=== PATIENT | female | born 1995 | race Caucasian/White ===

== ENCOUNTER 2022-06-17 15:41 | Emergency (ER) | payer OTHER, SELFPAY ==
--- NOTE | ~2022-06-17 | US_ITS ---
Pelvic ultrasound. Clinical History: First trimester , vaginal bleeding, pelvic pain Technique: Realtime transabdominal and transvaginal scanning of the pelvis was performed. Color flow Doppler and Doppler spectral analysis were performed. Findings: The uterus is anteverted. The endometrial stripe has a thickness of 11 mm. No intrauterine gestational sac is identified. The right ovary measures 2.3 x 1.4 x 2.3 cm. No significant right ovarian or adnexal mass is seen. The left ovary measures 2.5 x 2.0 x 2.8 cm. No significant left ovarian or adnexal mass is seen. Rest of flow present in both ovaries on Doppler spectral analysis. There is no evidence of free fluid in the cul de sac. Impression: Positive test without intrauterine gestation. Differential diagnosis includes early normal , spontaneous , or nonvisualized ectopic . Correlate clinically. Continued follow up with serial beta hCG, and repeat ultrasound as warranted, is advised. Reviewed, dictated and finalized at [facility]. GER CANCER Impression: Positive test without intrauterine gestation. Differential diagnosis includes early normal , spontaneous , or nonvisualized ectopic . Correlate clinically. Continued follow up with serial beta hCG, and repeat ultrasound as warranted, is advised.
[2022-06-17 16:21] VITALS: BP 134/76; PULSE 109; RESP 14; TEMP 36.8; O2SAT 99
[2022-06-17 17:29] LABS: Basophils Absolute Auto 0.1 K/mm3 (0.0-0.1); Basophils Percent Auto 0.9 % (0.2-1.2); Eosinophils Absolute Auto 0.1 K/mm3 (0-0.3); Eosinophils Percent Auto 1.4 % (0-4.4); Hematocrit 43.3 % (37.0-47.0); Hemoglobin 14.8 g/dL (12.0-15.0); Immature Granulocyte Absolute 0.02 K/mm3 (0.00-0.031); Immature Granulocyte Percent A 0.3 % (0-0.5); Lymphocytes Absolute Auto 2.24 K/mm3 (0.9-3.2); Lymphocytes Percent Auto 32.1 % (18.3-44.2); Mean Corpuscular HGB Conc 34.2 g/dl (32-36); Mean Corpuscular Hemoglobin 31.4 pg (26-34); Mean Corpuscular Volume 91.7 fl (80-100); Mean Platelet Volume 10.4 fl (7.4-10.4); Monocytes Absolute Auto 0.5 K/mm3 (0.1-0.6); Monocytes Percent Auto 6.6 % (2.6-8.5); Neutrophils Absolute Auto 4.1 K/mm3 (1.3-6.7); Neutrophils Percent Auto 58.7 % (45.5-73.1); Platelet Count Result 267 k/mm3 (150-375); Red Blood Count 4.72 M/mm3 (4.2-5.4); Red Cell Distribution Width 12.3 % (11.5-14.5)
[2022-06-17 21:48] VITALS: BP 122/81; PULSE 90; RESP 16; O2SAT 100
--- NOTE | 2022-06-17 23:40 | ED.PREGNANCY ---
HPI - General Chief complaint: SKIVER UPPERS OR LININGS Stated complaint: wants to confirm with blood test Time Seen by Provider: 06/17/22 22:04 Source: patient Mode of arrival: ambulatory Limitations: no limitations History of Present Illness HPI Narrative: Patient is a 27 yo female who presents to the ED wanting blood test to confirm . Patient reports the first day of her last normal menstrual cycle was May 09. She had 2 positive tests 2 weeks ago. She is scheduled to see an OFFICE SERVICES REPRESENTATIVE with [facility] on July 05. Patient reports having intermittent lower abdominal cramping over the last couple of days, worse in left lower abdomen. She denies having any pain today. She did note some brown vaginal discharge today, which prompted her presentation. She would like a official blood test to confirm her . Denies N/V, fever, cough, cold sx's. Patient is G1, P0. She has never seen a OFFICE SERVICES REPRESENTATIVE before. Never had Pap smear before. Related Data Allergies Allergy/AdvReac Type Severity Reaction Status Date / Time No Known Allergies Allergy Verified 06/17/22 21:50 Review of Systems Review of Systems: CONSTITUTIONAL: Denies fever, chills, or sweats. CARDIOVASCULAR: Denies chest pain. RESPIRATORY: Denies cough or dyspnea. GASTROINTESTINAL: See HPI. GENITOURINARY: See HPI. All systems reviewed & are unremarkable except as noted in HPI and below PMFSH Past Medical History Medical History (Updated 06/18/22 @ 03:21 by Elena Velarde PA-C) No pertinent past medical history Surgical History Surgical History (Updated 06/18/22 @ 00:13 by Elena Velarde PA-C) No pertinent past surgical history Social History Social History (Updated 06/18/22 @ 00:13 by Elena Velarde PA-C) Smoking status: Never smoker Exam Narrative: GENERAL: Well appearing, thin, non-toxic, in no acute distress. HEAD: Normocephalic, atraumatic. NECK: Supple. No adenopathy, no masses. RESPIRATORY: Airway patent, respirations nonlabored. Clear to auscultation bilaterally, no rales, rhonchi, wheezing. CARDIOVASCULAR: Regular rate and rhythm without murmurs, rubs, or gallops. Radial pulses 2+ and equal bilaterally. ABDOMINAL: Soft, minimal lower abdominal tenderness, nondistended, no hepatosplenomegaly. Normoactive BS. PELVIC: Normal external genitalia. Mild amount of brown vaginal spotting, no bright red bleeding. No significant CMT tenderness. Difficult to fully visualize cervix, but appears normal and closed. MUSCULOSKELETAL: Moves all extremities. Strength/ROM intact without gross deformities. SKIN: Warm, dry, normal color. No rashes. NEURO: A&O X3. Speech clear. Cranial nerves II-XII grossly intact. Steady gait. No ataxic movements. PSYCHIATRIC: Appropriate mood and affect. Normal interaction. Course Vital Signs Vital signs: Vital Signs Temperature 98.2 F 06/17/22 16:21 Pulse Rate 109 H 06/17/22 16:21 Respiratory Rate 14 06/17/22 16:21 Blood Pressure 134/76 06/17/22 16:21 Pulse Oximetry 99 06/17/22 16:21 Oxygen Delivery Room Air 06/17/22 16:21 Temperature 98.2 F 06/17/22 16:21 Pulse Rate 90 06/17/22 21:48 Respiratory Rate 16 06/17/22 21:48 Blood Pressure 122/81 06/17/22 21:48 Pulse Oximetry 100 06/17/22 21:48 Oxygen Delivery Room Air 06/17/22 21:48 MDM - OB/Uterine Contractions MDM Narrative Medical decision making narrative: Patient presented to ED approximately 4 to 5 weeks gestation, G1, P0, wanting blood test to confirm , cramping over last few days, vaginal spotting today. Vitals stable upon arrival. Beta hCG 201. Consistent with early . Hemoglobin and hematocrit stable. Patient with mild amount of dark brown vaginal bleeding on pelvic exam. Patient's blood type is AB-. Advised to it would be our recommendation to receive RhoGAM d/t acute bleeding. Patient's significant other had several questions about this and
== END 2022-06-18 03:32 | disposition home or self-care (01) ==
PROVIDERS: Emergency Medicine; Emergency Provider Physician Assistant
DX: O20.0 Threatened abortion (principal); Z3A.01 Less than 8 weeks gestation of pregnancy
CPT/HCPCS: 36415; 76801; 76817; 84702; 85025; 85461; 86850; 86900; 86901; 90384; 96372; 99284; J2790

== ENCOUNTER 2022-06-18 18:42 | Emergency (ER) | payer OTHER, SELFPAY ==
[2022-06-18 18:53] VITALS: BP 151/86; PULSE 97; RESP 16; TEMP 36.8; O2SAT 100
--- NOTE | 2022-06-18 20:43 | ED.FEMALEGU ---
HPI - Female Genitourinary General Chief complaint: Vaginal Bleeding Stated complaint: 5 WEEKS PREG VAG BLEEDING Time Seen by Provider: 06/18/22 20:22 Source: patient Mode of arrival: ambulatory Limitations: no limitations History of Present Illness HPI Narrative: Patient is 27 years old white female presented to the ED with sudden onset of transfer bright red blood vaginally 15 minutes prior to arrival to the emergency room. No abdominal pain. Patient noticed some brown vaginal discharge yesterday, came to our emergency room at that time and had positive test, negative Rh, had RhoGAM shot prior to discharge. Patient is 1, para 0, 0. Patient is healthy otherwise, Related Data Allergies Allergy/AdvReac Type Severity Reaction Status Date / Time No Known Allergies Allergy Verified 06/18/22 20:08 Review of Systems Review of Systems: All systems reviewed & are unremarkable except as noted in HPI and below PMFSH Past Medical History Medical History No pertinent past medical history Surgical History Surgical History No pertinent past surgical history Social History Social History Smoking status: Never smoker Exam Narrative: General appearance: Well-developed, well-nourished Skin: Normal color Head: Normocephalic, nontraumatic Eyes: Clear conjunctiva ENT: Oropharynx normal, ears normal, nose normal Neck: Supple, nontender Chest and respiratory: Airway patent, no respiratory distress, no accessory muscle use Heart: Regular rate/rhythm Abdomen: Soft, nontender, no organomegaly, quiet bowel sounds Vascular: Normal peripheral pulses, normal capillary refill. Musculoskeletal: Normal range of motion, nontender back Neurologic: Alert and oriented ?3, [employer]IE[employer] is normal as tested, no gross motor deficit : External Female Exam: normal external appearance and normal appearance of the urethra Speculum Exam - Vagina: vaginal bleeding (Scant dark brown blood mixed with fresh red bright blood around the cervix,) Speculum Exam - Cervix: normal appearance of the cervix and Cervical os closed Bimanual exam- vagina & uterus: normal bimanual exam and enlarged Course Reevaluation(s) Reevaluation #1: Patient care turned over to [facility] at shift change, awaiting labs, disposition. Patient been resting quietly in the emergency room without any issues or problems. Date: 06/18/22 Time: 22:17 Consultations Consultation #1: Dr. Donis, Patient can go home and follow-up as outpatient next week Date: 06/18/22 Time: 21:58 Vital Signs Vital signs: Vital Signs Temperature 36.8 C 06/18/22 18:53 Pulse Rate 97 06/18/22 18:53 Respiratory Rate 16 06/18/22 18:53 Blood Pressure 151/86 H 06/18/22 18:53 Pulse Oximetry 100 06/18/22 18:53 Oxygen Delivery Room Air 06/18/22 18:53 Temperature 36.8 C 06/18/22 18:53 Pulse Rate 97 06/18/22 18:53 Respiratory Rate 16 06/18/22 18:53 Blood Pressure 151/86 H 06/18/22 18:53 Pulse Oximetry 100 06/18/22 18:53 Oxygen Delivery Room Air 06/18/22 18:53 MDM - Female Genitourinary Lab Data Labs: Lab Results 06/18/22 Range/Units 21:44 Beta HCG, Quant Pending Critical Care Time Critical Care Time Critical Care Time: No Discharge Plan Discharge Clinical Impression: , threatened Patient Disposition: Home, Self-Care Condition: Stable Instructions: Antibiotic Form, Threatened Miscarriage (ED) Additional Instructions: Bedrest, pelvic rest, encourage fluid intake, clyde
[2022-06-18 22:27] LABS: Beta HCG Quantitative 169.27 mIU/ML
[2022-06-18 22:55] VITALS: RESP 18
== END 2022-06-18 22:55 | disposition home or self-care (01) ==
PROVIDERS: Nurse Practitioner Family; Emergency Provider Emergency Medicine
DX: O20.0 Threatened abortion (principal); Z3A.01 Less than 8 weeks gestation of pregnancy
CPT/HCPCS: 36415; 84702; 99283